=== PATIENT | male | born 1995 | race Caucasian/White ===

== ENCOUNTER 2017-07-17 14:13 | Emergency (ER) | payer OTHER ==
--- NOTE | 2017-07-17 14:26 | EDPHY ---
H & P Stated Complaint: 20 FT FALL OFF SKI JUMP, LANDED ON L SIDE, COUGH, RIB AND HIP PAIN Time Seen by Provider: 07/17/17 14:26 HPI/ROS: HPI CHIEF COMPLAINT: Fall HISTORY OF PRESENT ILLNESS: This patient 22-year-old male, otherwise healthy, he fell yesterday while skiing. He states he went off a jump at around 4:00 p.m.. He states he was 20 ft in the air and fell. He landed on his left side. He now complains of left hip pain, left lateral chest wall pain, pain when he takes a deep breath in, and additionally left lower quadrant left flank pain. He denies any bruising. He does state that his abdomen appears more distended than normal. Denies headache, neck pain. Denies LOC. This happened yesterday or close to 24 hr ago. Denies vomiting. Denies blood in his urine. States he has some abdominal pain, left hip pain, left flank pain, left lateral chest wall pain. He was taking ibuprofen but this did not help with this discomfort he did not sleep well yesterday and decided come the emergency room for evaluation. Upon arrival he is GCS 15 alert or x4, and his vital signs are stable. Past Medical History: No significant medical history Past Surgical History: No significant surgical history Social History: Lives locally, denies drugs alcohol. Family History: Noncontributory ROS REVIEW OF SYSTEMS: A comprehensive 10 point review of systems is otherwise negative aside from elements mentioned in the history of present illness. Exam Constitutional appears well nontoxic no acute distress, triage nursing summary reviewed, vital signs reviewed, awake/alert. Eyes normal conjunctivae and sclera, EOMI, PERRLA. HENT normal inspection, atraumatic, moist mucus membranes, no epistaxis, neck supple/ no meningismus, no raccoon eyes. Respiratory clear to auscultation bilaterally, normal breath sounds, no respiratory distress, no wheezing. Cardiovascular chest wall tender palpation left lateral chest wall no crepitus , no ecchymosis visualize, rate normal, regular rhythm, no murmur, no edema, distal pulses normal. Gastrointestinal soft, nondistended, mild tender palpation left lower quadrant and left CVA without ecchymosis,, no rebound, no guarding, normal bowel sounds, no distension, no pulsatile mass. Genitourinary mild left CVA tenderness. Musculoskeletal no midline vertebral tenderness, full range of motion, no calf swelling, no tenderness of extremities, no meningismus, good pulses, neurovascularly intact. Skin pink, warm, & dry, no rash, skin atraumatic. Neurologic awake, alert and oriented x 3, AAOx3, moves all 4 extremities equally, motor intact, sensory intact, CN II-XII intact, normal cerebellar, normal vision, normal speech. Psychiatric normal mood/affect. Heme/Lymph/Immune no lymphadenopathy. Differential Diagnosis: Includes but is not limited to in a particular order multiple contusions, soft tissue injury, solid organ injury, hemoperitoneum, pneumothorax, hemopneumothorax, rib fractures multiple contusions this parenchymal contusion Medical Decision Making: Plan for this patient x-ray rule out pneumothorax, will proceed with CT of the chest abdomen pelvis for trauma given 20 ft fall. Re-evaluation: X-ray chest one view reviewed: Negative for pneumothorax. Image reviewed by myself. CT scan chest and abdomen pelvis with IV contrast shows no evidence of acute traumatic injury. This is called to me by Dr. Ibrahim. 1620: I reviewed the patient's CTs with him. No evidence of acute traumatic injury. I discussed return precautions with the patient. He understands return emergency room if develops any worsening symptoms questions concerns. Recommend ibuprofen and rest. Return precautions discussed. Source: Patient - Personal History Current Tetanus Diphtheria and Acellular Pertussis (TDAP): Unsure - Medical/Surgical History Other PMH: DENIES - Social History Smoking Status: Never smoked Constitutional: Initial Vital Signs Temperature (C) 36.5 C 07/17/17 14:17 Heart Rate 73 07/17/17 14:17 Respiratory Rate 16 07/17/17 14:17 Blood Pressure 126/67 H 07/17/17 14:17 O2 Sat (%) 96 07/17/17 14:17 O2 Delivery Mode Room Air Allergies/Adverse Reactions: Penicillins Allergy (Verified 07/17/17 14:16) Home Medications: Medication Instructions Recorded Ibuprofen [Motrin (*)] 800 mg PO Q6-8PRN #10 tab 07/17/17 Medical Decision Making - Diagnostics Imaging Results: Imaging Impressions Chest X-Ray 07/17/17 14:29 Impression: No acute findings in the chest. - Data Points Laboratory Results: Laboratory Results 07/17/17 14:36 07/17/17 14:36 07/17/1718 07/17/17 14:36 14:36 14:36 WBC 6.28 10^3/uL 10^3/uL (3.80-9.50) RBC 4.99 10^6/uL 10^6/uL (4.40-6.38) Hgb 15.4 g/dL g/dL (13.7-17.5) Hct 46.1 % % (40.0-51.0) MCV 92.4 fL fL (81.5-99.8) MCH 30.9 pg pg (27.9-34.1) MCHC 33.4 g/dL g/dL (32.4-36.7) RDW 13.1 % % (11.5-15.2) Plt Count 206 10^3/uL 10^3/uL (150-400) MPV 9.8 fL fL (8.7-11.7) Neut % (Auto) 57.5 % % (39.3-74.2) Lymph % (Auto) 29.8 % % (15.0-45.0) Ellis % (Auto) 9.6 % % (4.5-13.0) Eos % (Auto) 2.4 % % (0.6-7.6) Baso % (Auto) 0.5 % % (0.3-1.7) Nucleat RBC Rel Count 0.0 % % (0.0-0.2) Absolute Neuts (auto) 3.62 10^3/uL 10^3/uL (1.70-6.50) Absolute Lymphs (auto) 1.87 10^3/uL 10^3/uL (1.00-3.00) Absolute Monos (auto) 0.60 10^3/uL 10^3/uL (0.30-0.80) Absolute Eos (auto) 0.15 10^3/uL 10^3/uL (0.03-0.40) Absolute Basos (auto) 0.03 10^3/uL 10^3/uL (0.02-0.10) Absolute Nucleated RBC 0.00 10^3/uL 10^3/uL (0-0.01) Immature Gran % 0.2 % % (0.0-1.1) Immature Gran # 0.01 10^3/uL 10^3/uL (0.00-0.10) PT 13.2 SEC SEC (12.0-15.0) INR 0.98 (0.83-1.16) APTT 26.8 SEC SEC (23.0-38.0) Sodium 148 mEq/L H mEq/L (135-145) Potassium 4.2 mEq/L mEq/L (3.5-5.2) Chloride 108 mEq/L mEq/L (97-110) Carbon Dioxide 26 mEq/l mEq/l (22-31) Anion Gap 14 mEq/L mEq/L (8-16) BUN 18 mg/dL mg/dL (7-23) Creatinine 1.0 mg/dL mg/dL (0.7-1.3) Estimated GFR > 60 Glucose 59 mg/dL L mg/dL (70-100) Calcium 9.9 mg/dL mg/dL (8.5-10.4) Departure - Departure Disposition: Home, Routine, Self-Care Clinical Impression: Multiple contusions Fall Qualifiers: Encounter type: initial encounter Qualified Code(s): W19.XXXA - Unspecified fall, initial encounter Condition: Good Instructions: Contusion in Adults (ED) Additional Instructions: 1. Return emergency room if you have any worsening symptoms questions or concerns. Referrals: NONE *PRIMARY CARE P,. [Primary Care Provider] - As per Instructions Prescriptions: Ibuprofen [Motrin (*)] 800 mg PO Q6-8PRN #10 tab
[2017-07-17 14:47] LABS: PLATELET COUNT 206 10^3/uL (150-400)
[2017-07-17 14:55] LABS: INR 0.98 (0.83-1.16); PROTIME(PATIENT) 13.2 SEC (12.0-15.0)
[2017-07-17] MEDS ORDERED: IOPAMIDOL (ISOVUE-300) 100 ML BTL ONE (15:06)
[2017-07-17 16:40] VITALS: BP 118/72
== END 2017-07-17 16:40 | disposition home or self-care (01) ==
DX: T14.8XXA Other injury of unspecified body region, initial encounter (principal); V00.321A Fall from snow-skis, initial encounter; Y99.8 Other external cause status; Y93.39 Activity, other involving climbing, rappelling and jumping off
CPT/HCPCS: Q9967

== ENCOUNTER → 2017-07-18 | Outpatient (CLI) | payer OTHER | LOC: BMCIMAGING 11:41 | PROVIDERS: ATTEND Family Medicine | DX: J98.11 Atelectasis (principal) ==